=== PATIENT | male | born 1965 | race Two or more races ===

== ENCOUNTER 2024-02-18 20:40 | Emergency (ER) | payer OTHER ==
[~2024-02-18] VITALS: Ht 180.3 cm; Wt 68.0 kg
[2024-02-18] MEDS ORDERED: SYNTHROID125 MCG PO (21:14)
[2024-02-18] MEDS ORDERED: ENALAPRILAT DIHYDRATE 1.25 MG/ML VIAL IV ONE (21:45)
[2024-02-18] MEDS ORDERED: COZAAR25 MG PO (22:01)
== END 2024-02-18 22:21 | disposition home or self-care (01) ==
LOC: ER 20:42
DX: I10 Essential (primary) hypertension (principal); E03.9 Hypothyroidism, unspecified